=== PATIENT | male | born 1995 | race Caucasian/White ===

== ENCOUNTER 2021-05-16 12:44 | Emergency (ER) | payer OTHER ==
[~2021-05-16] VITALS: Ht 190.5 cm; Wt 82.4 kg
[2021-05-16] MEDS ORDERED: ALBUTEROL 90 MCG/ACT 8GM HFA INHALER INH ONE (13:40)
--- NOTE | 2021-05-16 14:03 | REP ---
INDICATION: sob. COMPARISON: None. TECHNIQUE: PA and lateral views FINDINGS: The superior mediastinal structures are midline. The cardiac silhouette is unremarkable in size, shape, and position. The diaphragmatic surfaces of the lungs are regular, and the costophrenic angles are clear. The pulmonary garcia are clear. The imaged osseous structures are intact. IMPRESSION: There is no acute cardiopulmonary disease. <Electronically signed by Sj Taveras > 05/16/21 0905
[2021-05-16] MEDS ORDERED: AZIT-12 PO (14:22)
[2021-05-16] MEDS ORDERED: PROAAER10 INH (14:22)
[2021-05-16 14:33] VITALS: BP 128/72
== END 2021-05-16 14:32 | disposition home or self-care (01) ==
LOC: M ED 12:44
DX: J20.9 Acute bronchitis, unspecified (principal); F17.200 Nicotine dependence, unspecified, uncomplicated